=== PATIENT | male | born 2000 | race African-American/Black ===

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

== ENCOUNTER 2021-01-05 12:35 | Emergency (ER) | payer OTHER ==
[2021-01-05 21:18] LABS: SARS-CoV-2 PCR by NAA Not Detected (NotDetected)
== END 2021-01-05 13:12 | disposition home or self-care (01) ==
LOC: ERS 12:35
DX: J06.9 Acute upper respiratory infection, unspecified (principal); Z20.822 Contact with and (suspected) exposure to COVID-19
CPT/HCPCS: 99283; U0003; U0005

== ENCOUNTER 2021-07-29 13:15 | Emergency (ER) | payer OTHER ==
[2021-07-29] MEDS ORDERED: Ondansetron ODT 4 MG TAB ONE (14:21)
[2021-07-30 21:44] LABS: SARS-CoV-2 PCR by NAA Not Detected (NotDetected)
== END 2021-07-29 14:45 | disposition home or self-care (01) ==
LOC: ERS 13:15
DX: R09.81 Nasal congestion (principal); R11.0 Nausea; Z20.822 Contact with and (suspected) exposure to COVID-19; F17.200 Nicotine dependence, unspecified, uncomplicated
CPT/HCPCS: 99283; Q0162; U0003; U0005